=== PATIENT | female | born 1950 | race African-American/Black ===

== ENCOUNTER 2016-12-30 20:13 | Inpatient (IN) | payer MEDICARE, MEDICAID ==
[~2016-12-30] VITALS: Ht 165.1 cm; Wt 88.5 kg
[2016-12-30] MEDS ORDERED: LORAZEPAM 2MG/ML CPJ IV ONE ×2 (21:00→22:15)
[2016-12-30 21:29] LABS: BASOPHILS % 0.5 % (0.0-2.0); EOSINOPHILS % 1.3 % (0.0-5.0); HEMATOCRIT. 35.8 % (36.0-48.0); HEMOGLOBIN. 12.1 g/dL (12.0-16.0); LYMPHOCYTES % 17.8 % (20.0-50.0); MEAN CORPUSCULAR HEMOGLOBIN 29.2 pg (28.0-32.0); MEAN CORPUSCULAR VOLUME 86.7 fL (81.0-99.0); MEAN PLATELET VOLUME 6.5 fl (7.4-10.4); MONOCYTES % 10.4 % (2.0-8.0); PLATELET 380 x1000/uL (130-400); RED BLOOD CELL COUNT 4.14 mill/uL (4.2-5.4)
[2016-12-30 21:31] LABS: CHLORIDE 100 mEq/L (98-107)
[2016-12-30 21:33] LABS: PROTHROMBIN TIME 10.9 sec
[2016-12-30 21:35] LABS: CARBON DIOXIDE 20 mEq/L (21-32)
[2016-12-30 21:37] LABS: AMMONIA 46 uMol/L (<32)
[2016-12-30 21:38] LABS: ETHANOL BLOOD < 10 mg/dL
[2016-12-30 21:52] LABS: CREATINE KINASE 2479 IU/L (26-192)
[2016-12-30 23:14] LABS: CLARITY URINE CLEAR (CLEAR); COLOR URINE YELLOW (YELLOW); GLUCOSE URINE NEGATIVE (NEGATIVE); KETONES URINE NEGATIVE (NEGATIVE); LEUKOCYTE ESTERASE URINE TRACE (NEGATIVE); NITRITE URINE NEGATIVE (NEGATIVE); OCCULT BLOOD URINE TRACE (NEGATIVE); PROTEIN URINE NEGATIVE (NEGATIVE); SPECIFIC GRAVITY URINE 1.006 (1.005-1.030); UROBILINOGEN URINE 0.2 E.U./dL (0.2-1.0)
[2016-12-30] MEDS ORDERED: SODIUM CHLORIDE 0.9% 1,000 ML IV ONE (23:15)
[2016-12-30 23:24] LABS: *AMPHETAMINES SCREEN URINE NEGATIVE (NEGATIVE); *BARBITURATES SCREEN URINE NEGATIVE (NEGATIVE); *BENZODIAZEPINES SCREEN URINE NEGATIVE (NEGATIVE); *COCAINE SCREEN URINE NEGATIVE (NEGATIVE); CANNABINOID URINE SCREEN NEGATIVE (NEGATIVE); METHADONE URINE SCREEN NEGATIVE (NEGATIVE); OPIATES URINE SCREEN NEGATIVE (NEGATIVE); PHENCYCLIDINE URINE SCREEN NEGATIVE (NEGATIVE)
[2016-12-31 03:28] VITALS: BP 120/86
[2016-12-31 04:00] VITALS: BP 120/86
[2016-12-31] MEDS ORDERED: HYDROCODONE/ACETAMINOPHEN 5/325MG TABLET PO PRN (07:15)
[2016-12-31] MEDS ORDERED: CLONIDINE 0.1MG TABLET PO PRN (07:15)
[2016-12-31] MEDS ORDERED: ONDANSETRON HCL 4MG/2ML VIAL IV PRN (07:15)
[2016-12-31] MEDS ORDERED: LORAZEPAM 2MG/ML CPJ IV PRN (07:15)
[2016-12-31] MEDS ORDERED: ACETAMINOPHEN 325MG TABLET PO PRN (07:15)
[2016-12-31 08:30] VITALS: BP 149/93
[2016-12-31] MEDS ORDERED: DOCUSATE SODIUM 100MG CAPSULE PO PRN (09:00)
[2016-12-31] MEDS: ASPIRIN 81MG EC TABLET PO SCH (09:11)
[2016-12-31] MEDS: SODIUM CHLORIDE 0.9% 1,000 ML IV SCH ×2 (09:23→23:17)
[2016-12-31] MEDS ORDERED: SODIUM CHLORIDE 0.9% 1,000 ML IV SCH (11:00)
[2016-12-31 12:30] VITALS: BP 136/87
[2016-12-31] MEDS ORDERED: ALLO100T PO (13:16)
[2016-12-31] MEDS ORDERED: LEVO75TA7 PO (13:16)
[2016-12-31] MEDS ORDERED: AMLO5TAB4 PO (13:16)
[2016-12-31] MEDS ORDERED: RANI150T7 PO (13:16)
[2016-12-31] MEDS ORDERED: ZOLP10TA6 PO (13:16)
[2016-12-31] MEDS ORDERED: ASPI-867 PO (13:16)
[2016-12-31] MEDS ORDERED: ABIL10 PO (13:16)
[2016-12-31] MEDS ORDERED: BENA20TA3 PO (13:16)
[2016-12-31] MEDS ORDERED: LORA2TAB2 PO (13:16)
[2016-12-31] MEDS ORDERED: BUPR300T54 PO (13:16)
[2016-12-31] MEDS ORDERED: SERT100T PO ×2 (13:16→13:19)
[2016-12-31] MEDS ORDERED: METF500T4 PO (13:16)
[2016-12-31] MEDS ORDERED: DORZ10DR7 EACHEYE (13:19)
[2016-12-31] MEDS ORDERED: Livalo PO (13:19)
[2016-12-31] MEDS ORDERED: ZOLPIDEM TARTRATE 5MG TABLET PO PRN (15:15)
[2016-12-31] MEDS: SERTRALINE HCL 100MG TABLET PO SCH (16:14)
[2016-12-31] MEDS: FAMOTIDINE 20MG TABLET PO SCH (16:14)
[2016-12-31] MEDS: METFORMIN HCL 500MG TABLET PO SCH (16:15)
[2016-12-31 16:30] VITALS: BP 130/84
[2016-12-31] MEDS ORDERED: MEDICATION NOT ON FORMULARY EA (Ranitidine Hcl 1 TAB) PO SCH (17:00)
[2016-12-31] MEDS ORDERED: MEDICATION NOT ON FORMULARY EA (Zolpidem Tartrate 1 TAB) PO SCH (17:00)
[2016-12-31] MEDS: DORZOLAMIDE 2% OPHTH 10 ML BOTTLE EACHEYE SCH (17:54)
[2016-12-31 20:00] VITALS: BP 150/104
[2016-12-31] MEDS: BENAZEPRIL 20MG TABLET PO SCH (20:53)
[2016-12-31] MEDS ORDERED: ARIPIPRAZOLE 10MG TABLET PO SCH (21:00)
[2016-12-31] MEDS ORDERED: ATORVASTATIN CALCIUM 10MG TABLET PO SCH (21:00)
[2017-01-01] VITALS: BP 118/90
[2017-01-01 04:00] VITALS: BP 131/83
[2017-01-01] MEDS ORDERED: LEVOTHYROXINE SODIUM 75MCG TABLET PO SCH (06:45)
[2017-01-01 06:59] LABS: BASOPHILS % 0.6 % (0.0-2.0); EOSINOPHILS % 7.4 % (0.0-5.0); HEMATOCRIT. 33.2 % (36.0-48.0); HEMOGLOBIN. 11.3 g/dL (12.0-16.0); LYMPHOCYTES % 37.2 % (20.0-50.0); MEAN CORPUSCULAR HEMOGLOBIN 29.8 pg (28.0-32.0); MEAN CORPUSCULAR VOLUME 87.8 fL (81.0-99.0); MEAN PLATELET VOLUME 6.6 fl (7.4-10.4); MONOCYTES % 11.4 % (2.0-8.0); NEUTROPHILS % 43.4 % (40.0-76.0); PLATELET 313 x1000/uL (130-400); RED BLOOD CELL COUNT 3.79 mill/uL (4.2-5.4); RED CELL DISTRIBUTION WIDTH 13.5 % (11.6-14.6)
[2017-01-01 07:03] LABS: CARBON DIOXIDE 22 mEq/L (21-32); CHLORIDE 105 mEq/L (98-107)
[2017-01-01 07:18] LABS: CREATINE KINASE 1709 IU/L (26-192)
[2017-01-01 08:00] VITALS: BP 128/96
[2017-01-01] MEDS: ASPIRIN 81MG EC TABLET PO SCH (08:40)
[2017-01-01] MEDS: METFORMIN HCL 500MG TABLET PO SCH (08:40)
[2017-01-01] MEDS: SERTRALINE HCL 100MG TABLET PO SCH (08:41)
[2017-01-01] MEDS: BENAZEPRIL 20MG TABLET PO SCH (08:41)
[2017-01-01] MEDS: FAMOTIDINE 20MG TABLET PO SCH (08:41)
[2017-01-01] MEDS: DORZOLAMIDE 2% OPHTH 10 ML BOTTLE EACHEYE SCH (08:42)
[2017-01-01] MEDS ORDERED: BUPROPION HCL 150MG TABLET XL 24HR PO SCH (09:00)
[2017-01-01] MEDS ORDERED: MEDICATION NOT ON FORMULARY EA (Bupropion Hcl (Bupropion Xl) 1 TAB) PO SCH (09:00)
[2017-01-01] MEDS ORDERED: LIVALO 2 MG PO SCH (09:00)
[2017-01-01] MEDS ORDERED: ASPIRIN 325MG EC TABLET PO SCH (09:00)
[2017-01-01] MEDS ORDERED: ALLOPURINOL 100 MG TABLET PO SCH (09:00)
[2017-01-01] MEDS ORDERED: AMLODIPINE 5MG TABLET PO SCH (09:00)
[2017-01-01 12:01] VITALS: BP 134/87
[2017-01-01 14:15] VITALS: BP 142/89
== END 2017-01-01 15:15 | disposition home health service (06) | DRG 100 ==
LOC: ER 20:29 → 5WST 12-31 00:33 → ENRESERV 12-31 02:09
PROVIDERS: ADMIT Hospitalist; ATTEND Hospitalist
DX: R56.9 Unspecified convulsions (principal); G93.40 Encephalopathy, unspecified; M62.82 Rhabdomyolysis; J44.9 Chronic obstructive pulmonary disease, unspecified; I25.10 Atherosclerotic heart disease of native coronary artery without angina pectoris; I10 Essential (primary) hypertension; F31.9 Bipolar disorder, unspecified; R73.03 Prediabetes; Z95.5 Presence of coronary angioplasty implant and graft; Z87.891 Personal history of nicotine dependence; Z88.8 Allergy status to other drugs, medicaments and biological substances; Z79.82 Long term (current) use of aspirin; Z79.899 Other long term (current) drug therapy; I25.2 Old myocardial infarction; Z68.32 Body mass index [BMI] 32.0-32.9, adult; Z83.3 Family history of diabetes mellitus
CPT/HCPCS: 36415; 70450; 71010; 80053; 80305; 81001; 82140; 82550; 82962; 83735; 85025; 85610; 93005; 93970; 96361; 96374; 96376; 99291; G0482; J2060; J7030

== ENCOUNTER 2020-11-02 17:36 | Emergency (ER) | payer MEDICARE, MEDICAID ==
[~2020-11-02] VITALS: Ht 167.6 cm; Wt 90.0 kg
[~2020-11-02 17:36] MED LIST: ABIL10 PO; ALLO100T PO; AMLO5TAB4 PO; ASPI-867 PO; BENA20TA10 PO; BUPR-315 PO; DORZ10DR8 EACHEYE; LEVO75TA7 PO; LORA2TAB2 PO; Livalo PO; METF-414 PO; RANI150T7 PO; SERT100T PO; ZOLP10TA6 PO
[2020-11-02 18:39] LABS: EOSINOPHILS % 1.9 % (0.0-5.0); HEMATOCRIT. 31.8 % (36.0-48.0); HEMOGLOBIN. 10.8 g/dL (12.0-16.0); LYMPHOCYTES % 24.9 % (20.0-50.0); MEAN CORPUSCULAR HEMOGLOBIN 30.2 pg (28.0-32.0); MEAN CORPUSCULAR VOLUME 88.7 fL (81.0-99.0); MEAN PLATELET VOLUME 6.7 fl (7.4-10.4); MONOCYTES % 11.6 % (2.0-8.0); NEUTROPHILS % 60.6 % (40.0-76.0); PLATELET 364 x1000/uL (130-400); RED BLOOD CELL COUNT 3.59 mill/uL (4.2-5.4); RED CELL DISTRIBUTION WIDTH 13.8 % (11.6-14.6)
[2020-11-02 18:45] LABS: CHLORIDE 106 mEq/L (98-107)
[2020-11-02 18:50] LABS: ETHANOL BLOOD < 10 mg/dL
[2020-11-02] MEDS ORDERED: LORAZEPAM 2MG/ML CPJ IV ONE (20:15)
[2020-11-03] MEDS ORDERED: LORAZEPAM 2MG/ML CPJ IV PRN (00:15)
[2020-11-03] MEDS ORDERED: DIPHENHYDRAMINE 50MG/ML VIAL IV PRN (00:15)
[2020-11-03] MEDS ORDERED: ONDANSETRON HCL 4MG/2ML INJ IV PRN (00:15)
[2020-11-03] MEDS ORDERED: ACETAMINOPHEN 325MG TABLET PO PRN ×2 (00:15)
[2020-11-03] MEDS ORDERED: HYDRALAZINE 20MG/ML VIAL IV PRN (00:15)
[2020-11-03 03:41] LABS: CLARITY URINE CLEAR (CLEAR); COLOR URINE YELLOW (YELLOW); KETONES URINE NEGATIVE (NEGATIVE); LEUKOCYTE ESTERASE URINE 2+ (NEGATIVE); NITRITE URINE NEGATIVE (NEGATIVE); OCCULT BLOOD URINE NEGATIVE (NEGATIVE); PH URINE 5.5 (4.5-8.0); PROTEIN URINE NEGATIVE (NEGATIVE); SPECIFIC GRAVITY URINE 1.007 (1.005-1.030); UROBILINOGEN URINE 0.2 E.U./dL (0.2-1.0)
[2020-11-03 03:51] LABS: *AMPHETAMINES SCREEN URINE NEGATIVE (NEGATIVE); *BARBITURATES SCREEN URINE NEGATIVE (NEGATIVE); *BENZODIAZEPINES SCREEN URINE NEGATIVE (NEGATIVE)
[2020-11-03 03:52] LABS: *COCAINE SCREEN URINE NEGATIVE (NEGATIVE); CANNABINOID URINE SCREEN NEGATIVE (NEGATIVE); METHADONE URINE SCREEN NEGATIVE (NEGATIVE); OPIATES URINE SCREEN NEGATIVE (NEGATIVE); PHENCYCLIDINE URINE SCREEN NEGATIVE (NEGATIVE)
[2020-11-03] MEDS ORDERED: OLANZAPINE 10 MG/VIAL IM SCH (04:00)
[2020-11-03] MEDS: SODIUM CHLORIDE 0.9% INJ 3ML FLUSH IVF SCH ×3 (06:27→22:00)
[2020-11-03] MEDS ORDERED: BUPROPION HCL 150MG TABLET XL 24HR PO SCH (09:00)
[2020-11-03] MEDS: LORAZEPAM 2MG/ML CPJ IV PRN (10:23)
[2020-11-03] MEDS: ARIPIPRAZOLE 2MG TABLET PO SCH (10:52)
[2020-11-03] MEDS: SERTRALINE HCL 100MG TABLET PO SCH (10:52)
[2020-11-03] MEDS: BENAZEPRIL 10MG TABLET PO SCH ×2 (10:53→18:12)
[2020-11-03] MEDS: AMLODIPINE 5MG TABLET PO SCH (15:58)
[2020-11-03] MEDS ORDERED: ATORVASTATIN CALCIUM 10MG TABLET PO SCH (21:00)
[2020-11-04] MEDS: LORAZEPAM 2MG/ML CPJ IV PRN ×2 (03:01→08:36)
[2020-11-04] MEDS: SODIUM CHLORIDE 0.9% INJ 3ML FLUSH IVF SCH (06:27)
[2020-11-04] MEDS: SERTRALINE HCL 100MG TABLET PO SCH (12:11)
[2020-11-04] MEDS: ARIPIPRAZOLE 2MG TABLET PO SCH (12:11)
[2020-11-04] MEDS: AMLODIPINE 5MG TABLET PO SCH (12:12)
[2020-11-04 16:00] VITALS: BP 126/75
== END 2020-11-04 16:10 | disposition home or self-care (01) ==
LOC: ER 17:36 → EDBEDREQ 21:24 → CANRESERV 11-03 15:19 → ENRESERV 11-03 15:19 → CANBEDREQ 11-04 14:19 → ER 11-04 16:10
DX: F23 Brief psychotic disorder (principal); I25.10 Atherosclerotic heart disease of native coronary artery without angina pectoris; I11.9 Hypertensive heart disease without heart failure; I25.2 Old myocardial infarction; F31.9 Bipolar disorder, unspecified; E66.9 Obesity, unspecified; E78.00 Pure hypercholesterolemia, unspecified; Z88.6 Allergy status to analgesic agent; Z88.8 Allergy status to other drugs, medicaments and biological substances; Z68.32 Body mass index [BMI] 32.0-32.9, adult
CPT/HCPCS: 36415; 70450; 71045; 80053; 80307; 80320; 80329; 83880; 84443; 84484; 85025; 85610; 85730; 93005; 93970; 96372; 96374; 96376; 99285; J1200; J2060; J3490; G0480